=== PATIENT | female | born 1960 | race Caucasian/White ===

== ENCOUNTER 2019-12-10 09:05 | Outpatient (CLI) | payer BC, SELFPAY ==
--- NOTE | ~2019-12-10 | MM_ITS ---
EXAMINATION: MM scrn curt implant BI w jeremiah HISTORY: Screening mammogram TECHNIQUE: Craniocaudal and mediolateral oblique 3-D tomosynthesis images with implant displacement a nd synthetic 2-D images were generated. Craniocaudal and mediolateral oblique views of the breasts wi thout implant displacement were obtained using full field digital mammography. CAD analysis was submi tted and interpreted. COMPARISON: 07/02/2018, 06/26/2017, 01/12/2016 BREAST PARENCHYMAL COMPOSITION: There are scattered areas of fibroglandular density. FINDINGS: Scattered benign-appearing calcifications are present. There is no evidence of suspicious m ass, calcification, or architectural distortion to suggest malignancy in either breast. There has bee n no suspicious interval change. IMPRESSION: 1. No mammographic evidence of malignancy. 2. Recommend routine screening mammography in one year. BI-RADS Category 2: Benign finding(s). Reviewed, dictated and finalized at location A. 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
== END 2019-12-10 09:06 | disposition home or self-care (01) ==
LOC: ANHIMG 09:11
PROVIDERS: PCP Family Medicine Adolescent Medicine; Visit Provider Obstetrics & Gynecology
DX: Z12.31 Encounter for screening mammogram for malignant neoplasm of breast (principal)
CPT/HCPCS: 77063; 77067

== ENCOUNTER 2021-06-20 13:05 | Outpatient (CLI) | payer BC, SELFPAY ==
--- NOTE | ~2021-06-20 | MM_ITS ---
EXAMINATION: MM scrn curt implant BI w jeremiah HISTORY: Screening mammogram TECHNIQUE: Craniocaudal and mediolateral oblique 3-D tomosynthesis images with implant displacement a nd synthetic 2-D images were generated. Craniocaudal and mediolateral oblique views of the breasts wi thout implant displacement were obtained using full field digital mammography. CAD analysis was submi tted and interpreted. COMPARISON: 12/10/2019, 07/02/2018, 06/26/2017 BREAST PARENCHYMAL COMPOSITION: There are scattered areas of fibroglandular density. FINDINGS: Scattered benign-appearing calcifications are present. There is no evidence of suspicious m ass, calcification, or architectural distortion to suggest malignancy in either breast. There has bee n no suspicious interval change. IMPRESSION: 1. No mammographic evidence of malignancy. 2. Recommend routine screening mammography in one year. BI-RADS Category 2: Benign finding(s). Reviewed, dictated and finalized at location A.
== END 2021-06-20 13:06 | disposition home or self-care (01) ==
LOC: ANHIMG 13:06
PROVIDERS: PCP Family Medicine Adolescent Medicine; Visit Provider Student in an Organized Health Care Education/Training Program
DX: Z12.31 Encounter for screening mammogram for malignant neoplasm of breast (principal)
CPT/HCPCS: 77063; 77067

== ENCOUNTER 2022-08-13 09:03 | Outpatient (CLI) | payer OTHER, SELFPAY ==
--- NOTE | ~2022-08-13 | MM_ITS ---
EXAMINATION: MM scrn curt implant BI w jeremiah HISTORY: Screening mammogram TECHNIQUE: Craniocaudal and mediolateral oblique 3-D tomosynthesis images with implant displacement a nd synthetic 2-D images were generated. Craniocaudal and mediolateral oblique views of the breasts wi thout implant displacement were obtained using full field digital mammography. CAD analysis was submi tted and interpreted. COMPARISON: Comparison to multiple prior studies sequentially, with oldest reviewed study dated 09/03. BREAST PARENCHYMAL COMPOSITION: Breast composed of scattered areas of fibroglandular density FINDINGS: There are bilateral subpectoral silicone implants. There is no evidence of suspicious mass, calcification, or architectural distortion to suggest malignancy in either breast. There has been no suspicious interval change. IMPRESSION: 1. No mammographic evidence of malignancy. 2. Recommend routine screening mammography in one year. BI-RADS Category 1: Negative Reviewed, dictated and finalized at location A.
== END 2022-08-13 09:04 | disposition home or self-care (01) ==
PROVIDERS: PCP Family Medicine Adolescent Medicine; Visit Provider Obstetrics & Gynecology
DX: Z12.31 Encounter for screening mammogram for malignant neoplasm of breast (principal)
CPT/HCPCS: 77063; 77067

== ENCOUNTER 2023-10-22 09:00 | Outpatient (CLI) | payer OTHER, SELFPAY ==
--- NOTE | ~2023-10-22 | MM_ITS ---
EXAMINATION: MM scrn curt implant BI w jeremiah HISTORY: Screening mammogram TECHNIQUE: Craniocaudal and mediolateral oblique 3-D tomosynthesis images with implant displacement a nd synthetic 2-D images were generated. Craniocaudal and mediolateral oblique views of the breasts wi thout implant displacement were obtained using full field digital mammography. CAD analysis was submi tted and interpreted. COMPARISON: 08/13/2022, 06/20/2021, bilateral implant screening mammogram examinations BREAST PARENCHYMAL COMPOSITION: The breasts are heterogeneously dense, which may obscure small masses . FINDINGS: Status post bilateral augmentation mammoplasty. There is a biopsy marker on the left; history of prior benign left breast biopsy. There is no evidence of suspicious mass, calcification, or architectural distortion to suggest malign darya in either breast. There has been no suspicious interval change. IMPRESSION: 1. No mammographic evidence of malignancy. 2. Recommend routine screening mammography in one year. BI-RADS Category 1: Negative Reviewed, dictated and finalized at location A. 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
== END 2023-10-22 09:01 | disposition home or self-care (01) ==
LOC: ANHIMG 09:02
PROVIDERS: PCP Family Medicine Adolescent Medicine; Visit Provider Obstetrics & Gynecology
DX: Z12.31 Encounter for screening mammogram for malignant neoplasm of breast (principal)
CPT/HCPCS: 77063; 77067

== ENCOUNTER 2024-04-02 18:54 | Emergency (ER) | payer OTHER, SELFPAY ==
[2024-04-02 18:58] VITALS: BP 150/78; PULSE 109; RESP 20; TEMP 37.1; O2SAT 99
--- NOTE | 2024-04-02 19:17 | ED.URI ---
HPI - URI/Sore Throat General Chief Complaint: Upper Respiratory Infection Stated Complaint: Cold Symptoms Time Seen by Provider: 04/02/24 19:03 Source: patient and RN notes reviewed Mode of arrival: ambulatory Limitations: no limitations History of Present Illness HPI Narrative: Patient presents today complaining of a 4 day history of body aches, congestion, cough, intermittent subjective fever, and hoarse voice. Denies chest pain or shortness of breath. She has used TheraFlu and Advil cold and Sinus today without much relief. Patient presents to [facility] today from the airport as she is just coming back from [place]. 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 Denies history of asthma or COPD. Related Data Home Medications Medication Instructions Recorded Confirmed alendronate 35 mg tablet 35 mg PO WEEKLY 07/14/23 04/02/24 estradiol 0.01% (0.1 mg/gram) 1 appful vaginal DAILY 07/14/23 04/02/24 vaginal cream Allergies Allergy/AdvReac Type Severity Reaction Status Date / Time No Known Allergies Allergy Verified 04/02/24 19:15 Review of Systems Review of Systems: CONSTITUTIONAL: + body aches, subjective fever EYES: Denies visual changes, redness, or discharge. ENT: Denies rhinorrhea, sore throat, or otalgia.+ congestion, hoarse voice CARDIOVASCULAR: Denies chest pain, palpitations, or edema. RESPIRATORY: Denies dyspnea.+ cough GASTROINTESTINAL: Denies abdominal pain, nausea, vomiting, or diarrhea. GENITOURINARY: Denies dysuria or hematuria. SKIN: Denies rash, itching, or wounds. MUSCULOSKELETAL: Denies back pain, joint pain, or myalgia. NEUROLOGIC: Denies headache, numbness, tingling, or weakness. PSYCH: Denies depression or anxiety. [facility] Family History Family History Mother Family history of diabetes mellitus in first degree relative Family history of congestive heart failure Social History Social History Smoking status: Never smoker Alcohol intake: current Substance use: never Living arrangements: with family Occupation/Education: retired Comments At time of signature, I have reviewed and agree with nursing past medical, surgical, social and family history unless otherwise noted. Please see nursing chart for further information. There is no relevant family history pertinent to the presenting complaint Exam Narrative: GENERAL: Mildly ill-appearing, well-nourished, and in no acute distress. HEAD: Normocephalic, atraumatic. EYES: EOMI. No redness or drainage. Conjunctivae normal. ENT: Mucous membranes pink and moist. Nares congested. No rhinorrhea. Bilateral nasal turbinates are slightly erythematous and edematous. TMs with mild middle ear effusions without evidence of bacterial infection.. Throat normal. Uvula midline. NECK: Normal AROM. Supple. No lymphadenopathy. CHEST: No respiratory distress. Clear to auscultation. HEART: Regular rate and rhythm. No murmur appreciated. EXTREMITIES: Normal range of motion. No edema. SKIN: Warm, dry, no rash. Capillary refill normal. Normal skin turgor. NEURO: No focal deficits. Alert and oriented x3. Gait steady. PSYCH: Normal affect. No signs of depression or anxiety. Course Course Level of Care: Express Care Visit Vital Signs Vital signs: Vital Signs Temperature 98.8 F 04/02/24 18:58 Pulse Rate 109 H 04/02/24 18:58 Respiratory Rate 20 04/02/24 18:58 Blood Pressure 150/78 H 04/02/24 18:58 Pulse Oximetry 99 04/02/24 18:58 Oxygen Delivery Room Air 04/02/24 18:58 Temperature 98.8 F 04/02/24 18:58 Pulse Rate 109 H 04/02/24 18:58 Respiratory Rate 20 04/02/24 18:58 Blood Pressure 150/78 H 04/02/24 18:58 Pulse Oximetry 99 04/02/24 18:58 Oxygen Delivery Room Air 04/02/24 18:58 MDM - URI/Sore Throat MDM Narrative Medical decisio
== END 2024-04-02 19:24 | disposition home or self-care (01) ==
PROVIDERS: Emergency Provider Nurse Practitioner; PCP Family Medicine Adolescent Medicine
DX: J06.9 Acute upper respiratory infection, unspecified (principal); Z86.711 Personal history of pulmonary embolism
CPT/HCPCS: 99213; G0463

== ENCOUNTER 2024-10-14 11:58 | Emergency (ER) | payer OTHER, SELFPAY ==
--- NOTE | ~2024-10-14 | CT_ITS ---
EXAMINATION: CT hip RT wo con DATE: 10/14/2024 14:17 INDICATION: Right hip popping, pain and limited range of motion post fall TECHNIQUE: High resolution computed tomography (CT) of the right hip was performed without intravenou s contrast. Additional sagittal and coronal reconstructions were performed. Automated exposure contro l and iterative reconstruction technique were employed. The dose-length product was 109.18 mGy-cm. COMPARISON: Radiographs dated 10/14/2024 FINDINGS: Bone alignment is normal. No fracture. Minimal right hip and mild right sacroiliac osteoarthritis. No hip joint effusion. Tiny enthesophytes at the right greater trochanter and right ischial tuberosity, the former accounting for the calcific density of concern on the prior radiographs. Musculature abou t the right pelvis, hip and proximal thigh are unremarkable. Right adnexa and visualized portions of the bladder, uterus and bowels are unremarkable. No free fluid in the pelvis. No pathologically enlar ged right pelvic or inguinal lymphadenopathy. IMPRESSION: 1. Tiny enthesophyte at the right greater trochanter which accounts for the calcific density of ebonie rn on the prior radiographs. No fracture or other acute osseous abnormality. Reviewed, dictated and finalized at location A. 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 Tiny enthesophyte at the right greater trochanter which accounts for the whitney cific density of concern on the prior radiographs. No fracture or other acute o sseous abnormality.
--- NOTE | ~2024-10-14 | XR_ITS ---
XR hip RT 2V w AP pelvis 10/14/2024 13:11 INDICATION: Right hip pain PROCEDURE: AP pelvis and 2 views right hip COMPARISON: No prior studies for comparison. FINDINGS: There is a small ossific densities superior to the greater tuberosity of the right femur wi th some irregular lucency of the greater tuberosity. Underlying fracture at this location cannot be e xcluded.. The soft tissues appear within normal limits. No foreign bodies are identified. IMPRESSION: 1: Possible avulsion fracture of the greater tuberosity of the right femur. Recommend correlation wit h CT. Reviewed, dictated and finalized at location B. ER SYRUP IMPRESSION: 1: Possible avulsion fracture of the greater tuberosity of the right femur. Rec ommend correlation with CT.
[2024-10-14 11:59] VITALS: BP 215/90; PULSE 80; RESP 16; TEMP 36.6; O2SAT 98
[2024-10-14 14:00] VITALS: BP 179/85; PULSE 68; RESP 14; O2SAT 97
[2024-10-14] MEDS: MORPHINE SULFATE (*CRX) 4 MG/ML INJ IV PUSH (14:00)
--- NOTE | 2024-10-14 14:02 | ED_ITS ---
HPI - Extremity Injury (Lower) General Chief Complaint: Extremity Injury, Lower <Stephen Diaz PA-C - Last Filed: 10/14/24 17:58> Stated Complaint: RLE injury <Stephen Diaz PA-C - Last Filed: 10/14/24 17:58> Time Seen by Provider: 10/14/24 13:00 <Stephen Diaz PA-C - Last Filed: 10/14/24 17:58> Source: patient <ARIS Whittaker Last Filed: 10/14/24 17:58> Mode of arrival: ambulatory <ARIS Whittaker Last Filed: 10/14/24 17:58> Limitations: no limitations <ARIS Whittaker Last Filed: 10/14/24 17:58> History of Present Illness HPI Narrative: This is a 64-year-old female who presents to the ED for chief complaint of right hip pain and right thigh pain after injury today. Patient was playing pickleball and felt a pop in her right lateral/posterior hip. States she has pain radiating from right buttock into the right posterior thigh. Denies numbness, weakness. States troubles with weight-bearing and pain and certain positions. Denies any further sites of pain or injury <Stephen Diaz PA-C - Last Filed: 10/14/24 17:58> Related Data Home Medications: Home Medications ?Medication ?Instructions ?Recorded ?Confirmed ?Last Taken ?Type alendronate 35 mg tablet 35 mg PO WEEKLY 07/14/23 04/06/24 Unknown History estradiol 0.01% (0.1 mg/gram) 1 appful vaginal DAILY 07/14/23 04/06/24 Unknown History vaginal cream <Stephne Diaz PA-C - Last Filed: 10/14/24 17:58> Allergies/Adverse Reactions: Allergies Allergy/AdvReac Type Severity Reaction Status Date / Time No Known Allergies Allergy Verified 04/06/24 11:15 <ARIS Whittaker Last Filed: 10/14/24 17:58> Review of Systems 2 Review of Systems: All systems as dictated in HPI <ARIS Whittaker Last Filed: 10/14/24 17:58> PMFSH Family History Family History: Family History Mother Family history of diabetes mellitus in first degree relative Family history of congestive heart failure <Stephen Diaz PA-C - Last Filed: 10/14/24 17:58> Social History Social History: Social History Smoking status: Never smoker Alcohol intake: current Substance use: never Living arrangements: with family Occupation/Education: retired <Stephen Diaz PA-C - Last Filed: 10/14/24 17:58> Exam 2 Narrative: GENERAL: Well-appearing, well-nourished, and in no acute distress. HEAD: Normocephalic, atraumatic. EYES: PERRLA and EOMI. ENT: Nares clear, no rhinorrhea or epistaxis. Mucous membranes moist. Oropharynx without tonsillar hypertrophy exudate or other lesions. NECK: Supple. No adenopathy or masses. CHEST: No respiratory distress. Clear to auscultation. No wheezes rales or rhonchi HEART: Regular rate and rhythm. No murmur heard. Normal peripheral pulses. ABDOMEN: Soft, nontender, nondistended, normal active bowel sounds. MSK: RLE: Able to lift right leg off the bed. No pain with log roll of the right hip. Full range of motion of the right knee and right ankle. 5/5 strength and sensation. Minimal to mild tenderness to the right lateral/posterior hip. LLE: Benign SKIN: Warm, dry, no rash. NEURO: Alert and oriented x4. No focal deficits. PSYCH: Normal mood and affect. <Stephen Diaz PA-C - Last Filed: 10/14/24 17:58> Course HEALTH INFORMATION ADMINISTRATOR/PA Physician Supervision I agree with midlevel documentation; I performed the medical decision making component of this evaluation. <Yessenia Snyder MD - Last Filed: 10/14/24 18:39> Vital Signs Vital signs: Vital Signs Temperature 97.8 F 10/14/24 11:59 Pulse Rate 80 10/14/24 11:59 Respiratory Rate 16 10/14/24 11:59 Blood Pressure 215/90 H 10/14/24 11:59 Pulse Oximetry 98 10/14/24 11:59 Temperature 97.8 F 10/14/24 11:59 Pulse Rate 70 10/14/24 16:20 Respiratory Rate 16 10/14/24 16:20 Blood Pressure 155/92 H 10/14/24 16:20 Pulse Oximetry 100 10/14/24 16:20 <Stephen Diaz PA-C - Last Filed: 10/14/24 17:58> Vital Signs Temperature 97.8 F 10/14/24 11:59 Pulse Rate 80 10/14/24 11:59 Respiratory Rate 16 10/14/24 11:59 Blood Pressure 215/90 H 10/14/24 11:59 Pulse Oximetry 98 10/14/24 11:59 Temperature 97.8 F 10/14/24 11:59 Pulse Rate 70 10/14/24 16:20 Respiratory Rate 16 10/14/24 16:20 Blood Pressure 155/92 H 10/14/24 16:20 Pulse Oximetry 100 10/14/24 16:20 <Yessenia Snyder MD - Last Filed: 10/14/24 18:39> MDM - Extremity Injury (Lower) MDM Narrative Medical decision making narrative: This is a 64-year-old female who presents to the ED for chief complaint of right lower extremity injury today while playing pickleball. Vitals initially showing elevated blood pressure but otherwise normal. Exam shows patient is very apprehensive to bear weight. She is able to fully range the hip and knee joint. She has reproducible pain with straight leg raise/stretching the hamstring muscle. Right hip x-ray: IMPRESSION: 1: Possible avulsion fracture of the greater tuberosity of the right femur. Recommend correlation with CT. Follow-up right hip CT: IMPRESSION: 1. Tiny enthesophyte at the right greater trochanter which accounts for the calcific density of concern on the prior radiographs. No fracture or other acute osseous abnormality. Overall I do not feel that the enthesophyte found on the imaging today correlates with patient's pain presentation. She has reproducible hamstring pain on exam. Nursing notes mention she was nonweightbearing, however she is able to bear weight without pain. Most of her apprehension is coming from straightening the leg. She points to the ischial tuberosity at the hamstring origin. After pain med she is feeling improved. She was given crutches and is able to ambulate with the assistance of the crutches. She will follow-up with PCP on this issue. Patient will be discharged in stable condition. Supportive measures discussed and return precautions given. Patient is understanding and agreeable with plan for discharge with PCP follow-up. <Stephen Diaz PA-C - Last Filed: 10/14/24 17:58> Lab Data Result diagrams: 10/14/24 14:02 10/14/24 14:02 <Stephen Diaz PA-C - Last Filed: 10/14/24 17:58> Labs: Lab Results 10/14/24 Range/Units 14:02 WBC 7.2 (4.5-10.0) K/mm3 RBC 4.30 (4.2-5.4) M/mm3 Hgb 13.6 (12.0-15.0) g/dL Hct 40.0 (37.0-47.0) % MCV 93.0 (80-100) fl MCH 31.6 (26-34) pg MCHC 34.0 (32-36) g/dl RDW 13.4 (11.5-14.5) % Plt Count 179 (150-375) k/mm3 MPV 10.0 (7.4-10.4) fl Immature Gran % (Auto) 0.1 (0-0.5) % Neut % (Auto) 77.4 H (45.5-73.1) % Lymph % (Auto) 14.5 L (18.3-44.2) % [place]oshone % (Auto) 7.1 (2.6-8.5) % Eos % (Auto) 0.3 (0-4.4) % Baso % (Auto) 0.6 (0.2-1.2) % Lymph # (Auto) 1.04 (0.9-3.2) K/mm3 [place]oshone # (Auto) 0.5 (0.1-0.6) K/mm3 Eos # (Auto) 0.0 (0-0.3) K/mm3 Baso # (Auto) 0.0 (0.0-0.1) K/mm3 Abs Immat Gran (auto) 0.01 (0.00-0.031) K/mm3 Absolute Neuts (auto) 5.6 (1.3-6.7) K/mm3 Absolute Nucleated RBC 0.000 (0.0-0.012) K/mm3 Nucleated RBC % 0.0 (0.0-0.2) % Sodium 137 (137-145) mmol/L Potassium 4.0 (3.4-5.0) mmol/L Chloride 106 (98-107) mmol/L Carbon Dioxide 24 (22-30) mmol/L Anion Gap 7 (4-12) mmol/L BUN 11 (7-17) mg/dL Creatinine 0.50 L (0.7-1.0) mg/dL Estim Creat Clear Calc 75 ml/min Estimated GFR > 60 (59 - ) Glucose 99 (65-110) mg/dL Calcium 9.6 (8.4-10.2) mg/dL <Stephen Diaz PA-C - Last Filed: 10/14/24 17:58> Lab Results 10/14/24 Range/Units 14:02 WBC 7.2 (4.5-10.0) K/mm3 RBC 4.30 (4.2-5.4) M/mm3 Hgb 13.6 (12.0-15.0) g/dL Hct 40.0 (37.0-47.0) % MCV 93.0 (80-100) fl MCH 31.6 (26-34) pg MCHC 34.0 (32-36) g/dl RDW 13.4 (11.5-14.5) % Plt Count 179 (150-375) k/mm3 MPV 10.0 (7.4-10.4) fl Immature Gran % (Auto) 0.1 (0-0.5) % Neut % (Auto) 77.4 H (45.5-73.1) % Lymph % (Auto) 14.5 L (18.3-44.2) % [place] % (Auto) 7.1 (2.6-8.5) % Eos % (Auto) 0.3 (0-4.4) % Baso % (Auto) 0.6 (0.2-1.2) % Lymph # (Auto) 1.04 (0.9-3.2) K/mm3 [place]oshone # (Auto) 0.5 (0.1-0.6) K/mm3 Eos # (Auto) 0.0 (0-0.3) K/mm3 Baso # (Auto) 0.0 (0.0-0.1) K/mm3 Abs Immat Gran (auto) 0.01 (0.00-0.031) K/mm3 Absolute Neuts (auto) 5.6 (1.3-6.7) K/mm3 Absolute Nucleated RBC 0.000 (0.0-0.012) K/mm3 Nucleated RBC % 0.0 (0.0-0.2) % Sodium 137 (137-145) mmol/L Potassium 4.0 (3.4-5.0) mmol/L Chloride 106 (98-107) mmol/L Carbon Dioxide 24 (22-30) mmol/L Anion Gap 7 (4-12) mmol/L BUN 11 (7-17) mg/dL Creatinine 0.50 L (0.7-1.0) mg/dL Estim Creat Clear Calc 75 ml/min Estimated GFR > 60 (59 - ) Glucose 99 (65-110) mg/dL Calcium 9.6 (8.4-10.2) mg/dL <Yessenia Snyder MD - Last Filed: 10/14/24 18:39> Discharge Plan Discharge Clinical Impression: Right hamstring muscle strain <Stephen Diaz PA-C - Last Filed: 10/14/24 17:58> Patient Disposition: Home, Self-Care <Stephen Diaz PA-C - Last Filed: 10/14/24 17:58> Condition: Stable <Stephen Diaz PA-C - Last Filed: 10/14/24 17:58> Instructions: Antibiotic Form <Stephen Diaz PA-C - Last Filed: 10/14/24 17:58> Additional Instructions: Exam and imaging today are reassuring overall. Please take Tylenol and Advil as needed for pain control every 4-6 hours. Use crutches and remain weight-bearing as tolerated. If you have any new or worsening symptoms please return to the ER for further evaluation. <Stephen Diaz PA-C - Last Filed: 10/14/24 17:58> Patient Language: [place] Citizen <Stephen Diaz PA-C - Last Filed: 10/14/24 17:58> Prescriptions: No Action prednisone 20 mg tablet 40 mg PO DAILY 5 Days Qty: 10 0RF estradiol 0.01 % (0.1 mg/gram) cream 1 appful vaginal DAILY Rx Instructions: Q other day alendronate 35 mg tablet 35 mg PO WEEKLY levofloxacin 500 mg tablet 500 mg PO DAILY Qty: 10 0RF hydrocodone-acetaminophen 5-325 mg tablet 1 tablet PO QID PRN (Reason: pain or cough) Qty: 25 0RF <Stephen Diaz PA-C - Last Filed: 10/14/24 17:58> Follow-up/Referrals: Yasir Cintron MD [Primary Care Provider] - <Stephen Diaz PA-C - Last Filed: 10/14/24 17:58> Time of Disposition: 15:52 <Stephen Diaz PA-C - Last Filed: 10/14/24 17:58> 15:52 <Yessenia Snyder MD - Last Filed: 10/14/24 18:39>
[2024-10-14 14:17] LABS: Basophils Percent Auto 0.6 % (0.2-1.2); Eosinophils Percent Auto 0.3 % (0-4.4); Hemoglobin 13.6 g/dL (12.0-15.0); Immature Granulocyte Absolute 0.01 K/mm3 (0.00-0.031); Immature Granulocyte Percent A 0.1 % (0-0.5); Lymphocytes Absolute Auto 1.04 K/mm3 (0.9-3.2); Lymphocytes Percent Auto 14.5 % (18.3-44.2); Mean Corpuscular Hemoglobin 31.6 pg (26-34); Monocytes Absolute Auto 0.5 K/mm3 (0.1-0.6); Monocytes Percent Auto 7.1 % (2.6-8.5); Neutrophils Absolute Auto 5.6 K/mm3 (1.3-6.7); Neutrophils Percent Auto 77.4 % (45.5-73.1); Platelet Count Result 179 k/mm3 (150-375); Red Cell Distribution Width 13.4 % (11.5-14.5); White Blood Count 7.2 K/mm3 (4.5-10.0)
[2024-10-14 14:30] LABS: Anion Gap 7 mmol/L (4-12); Blood Urea Nitrogen 11 mg/dL (7-17); Calcium 9.6 mg/dL (8.4-10.2); Carbon Dioxide 24 mmol/L (22-30); Chloride 106 mmol/L (98-107); Estimated CRCL calculation 75 ml/min; Estimated Glomerular Filt Rate > 60; Glucose 99 mg/dL (65-110); Sodium 137 mmol/L (137-145)
[2024-10-14 16:20] VITALS: BP 155/92; PULSE 70; RESP 16; O2SAT 100
== END 2024-10-14 16:20 | disposition home or self-care (01) ==
PROVIDERS: Emergency Medicine; Emergency Provider Physician Assistant; PCP Family Medicine Adolescent Medicine
DX: S86.111A Strain of other muscle(s) and tendon(s) of posterior muscle group at lower leg level, right leg, initial encounter (principal); X58.XXXA Exposure to other specified factors, initial encounter; Y93.59 Activity, other involving other sports and athletics played individually
CPT/HCPCS: 36415; 73502; 73700; 80048; 85025; 96374; 99284; J2270